=== PATIENT | male | born 1995 | race Caucasian/White ===

== ENCOUNTER 2016-10-30 22:01 | Emergency (ER) | payer SELFPAY ==
[~2016-10-30] VITALS: Ht 193 cm; Wt 153.0 kg
[~2016-10-30 22:01] MED LIST: AMOX875 PO; CEPALOZ SUCK-ON; DOXY150C OR; MEDR4PAK3 PO; VENTAER INH; [UNRECOGNIZED DRUG - CODE] EX
[2016-10-30 22:05] VITALS: BP 149/75; PULSE 91; RESP 18; TEMP 98.3; O2SAT 97
[2016-10-30 22:20] VITALS: PULSE 91; RESP 18; TEMP 98.3; O2SAT 97
--- NOTE | 2016-10-30 22:23 | PD ---
HPI Chief Complaint: GI Complaint Time Seen by Provider: 22:13 Travel History International Travel<30 days: No Contact w/Intl Traveler<30days: No Traveled to known affect area: No History of Present Illness HPI 21-year-old male here for evaluation of what he believes is a severe case of acid reflux. He states that for the last 2-3 months he has been having left upper abdominal burning and has been waking up with burning in his chest and throat, coughing up acid-like material. He states symptoms have worsened over the last 6 days, consistent of vomiting in the morning time. Pain is moderate, intermittent. He tried taking Mylanta today with only mild relief of symptoms. Currently he does not have any pain in his chest, and states that majority of his pain is in his left upper abdomen. No history of abdominal surgeries. No change in bowel movements. He does not drink alcohol or smoke cigarettes. He does admit to smoking marijuana, no other illicit drugs. He took a dose of omeprazole 4 days ago, and has not taken a dose since. He missed work today and is requesting a work note. [facility] Past Medical History Diminished Hearing: No Immunizations Current: Yes Past Surgical History Abdominal Surgery: Yes Social History Alcohol Use: No Tobacco Use: No Substance Use: No Allergies-Medications (Allergen,Severity, Reaction): Coded Allergies: No Known Allergies (Verified , 10/30/16) Reported Meds & Prescriptions Reported Meds & Active Scripts Active No Active Prescriptions or Reported Medications Review of Systems Except as stated in HPI: all other systems reviewed are Neg Physical Exam Narrative GENERAL: Well-developed, well-nourished, overweight, comfortable, no acute distress. SKIN: Focused skin assessment warm/dry. HEAD: Atraumatic. Normocephalic. EYES: Pupils equal and round. No scleral icterus. No injection or drainage. ENT: Mucous membranes pink and moist. CARDIOVASCULAR: Regular rate and rhythm. RESPIRATORY: No accessory muscle use. Clear to auscultation. Breath sounds equal bilaterally. GASTROINTESTINAL: Abdomen soft, nondistended. Mild epigastric and left upper quadrant tenderness without peritoneal signs. No right upper quadrant tenderness. Rest of abdomen is soft and nontender. Normal bowel sounds. No hernias. MUSCULOSKELETAL: No obvious deformities. No clubbing. No cyanosis. No edema. NEUROLOGICAL: Awake and alert. No obvious cranial nerve deficits. Motor grossly within normal limits. Normal speech. PSYCHIATRIC: Appropriate mood and affect; insight and judgment normal. Data Data Last Documented VS Vital Signs Date Time Temp Pulse Resp B/P Pulse Ox O2 Delivery O2 Flow Rate FiO2 10/30/16 22:20 18 10/30/16 22:20 98.3 91 97 10/30/16 22:20 Room Air 10/30/16 22:05 149/75 Orders Complete Blood Count With Diff (10/30/16 22:20) Comprehensive Metabolic Panel (10/30/16 22:20) Lipase (10/30/16 22:20) Iv Access Insert/Monitor (10/30/16 22:20) Ecg Monitoring (10/30/16 22:20) Oximetry (10/30/16 22:20) Pantoprazole Inj (Protonix Inj) (10/30/16 22:30) Sodium Chloride 0.9% Flush (Ns Flush) (10/30/16 22:30) Al-Mag Hy-Si 40-40-4 Mg/Ml Liq (Mag-Al P (10/30/16 22:30) Lidocaine 2% Viscous (Xylocaine 2% Visco (10/30/16 22:30) Labs Laboratory Tests Test 10/30/16 22:35 White Blood Count 8.0 TH/MM3 Red Blood Count 5.18 MIL/MM3 Hemoglobin 14.5 GM/DL Hematocrit 44.3 % Mean Corpuscular Volume 85.7 FL Mean Corpuscular Hemoglobin 28.0 PG Mean Corpuscular Hemoglobin 32.7 % Concent Red Cell Distribution Width 12.1 % Platelet Count 219 TH/MM3 Mean Platelet Volume 7.4 FL Neutrophils (%) (Auto) 53.4 % Lymphocytes (%) (Auto) 32.5 % Monocytes (%) (Auto) 9.7 % Eosinophils (%) (Auto) 3.0 % Basophils (%) (Auto) 1.4 % Neutrophils # (Auto) 4.3 TH/MM3 Lymphocytes # (Auto) 2.6 TH/MM3 Monocytes # (Auto) 0.8 TH/MM3 Eosinophils # (Auto) 0.2 TH/MM3 Basophils # (Auto) 0.1 TH/MM3 CBC Comment DIFF FINAL Differential Comment Sodium Level 142 MEQ/L Potassium Level 3.4 MEQ/L Chloride Level 105 MEQ/L Carbon Dioxide Level 30.8 MEQ/L Anion Gap 6 MEQ/L Blood Urea Nitrogen 10 MG/DL Creatinine 0.93 MG/DL Estimat Glomerular Filtration 102 ML/MIN Rate Random Glucose 102 MG/DL Calcium Level 8.9 MG/DL Aspartate Amino Transf 20 U/L (AST/SGOT) Alanine Aminotransferase 40 U/L (ALT/SGPT) Albumin 3.7 GM/DL Lipase 129 U/L [facility] Medical Decision Making Medical Screen Exam Complete: Yes Emergency Medical Condition: Yes Differential Diagnosis Gastritis, peptic ulcer disease, pancreatitis, hepatobiliary disease, Narrative Course Initial vital signs show heart rate 91, blood pressure 149/75, pulse ox 97% on room air, oral temp of 98.3F. CBC is unremarkable. CMP is is remarkable for potassium 3.4, otherwise unremarkable. Lipase is 129. Patient signs and symptoms are consistent with gastritis/GERD. He has only taken one dose of Protonix and took this dose 4 days ago. I have encouraged him to continue taking this medication daily. I will give him a prescription for Carafate as well. I do not believe that there is an acute surgical process to warrant imaging at this time. I believe he is stable for discharge home with outpatient follow-up with a primary care physician and dog control officer this week. He was informed on when to return to the emergency department. He verbalizes understanding and agreement with plan. Diagnosis Primary Impression: Gastritis Qualified Code: K29.50 - Chronic gastritis, presence of bleeding unspecified, unspecified gastritis type Referrals: Roderick Swan MD 3 days [employer] Primary Care Physician 3 days Additional Instructions: Take the omeprazole/pantoprazole daily. Follow-up with a primary care physician this week. Follow-up with dog control officer Dr. Swan or a dog control officer of your choice this week. Return to the emergency department for worsening symptoms or any other concerns. Scripts Sucralfate (Carafate)1 Gm Tab1 Gm PO TID #30 TAB Ref 0 On empty stomach Prov:Sharath Barber MD 10/30/16 Disposition: 01 DISCHARGE HOME Condition: Stable Sharath Barber MD Oct 30, 2016 22:23
[2016-10-30] MEDS ORDERED: ALUMINUM/MAGNESIUM/SIMETH 30 ML CUP PO ONE (22:30)
[2016-10-30] MEDS ORDERED: PANTOPRAZOLE SODIUM 40 MG VIAL IVP ONE (22:30)
[2016-10-30] MEDS ORDERED: SODIUM CHLORIDE 0.9% FLUSH 10 ML FLUSH IV FLUSH PRN (22:30)
[2016-10-30] MEDS ORDERED: LIDOCAINE VISCOUS 2% SOLN 15 ML UDC PO ONE (22:30)
[2016-10-30 22:46] LABS: AUTOMATED NEUTROPHIL # 4.3 TH/MM3 (1.8-7.7); BASOPHIL # 0.1 TH/MM3 (0-0.2); BASOPHIL % 1.4 % (0.0-2.0); EOSINOPHIL # 0.2 TH/MM3 (0-0.4); HEMATOCRIT 44.3 % (39.0-51.0); HEMO FLAGS DIFF FINAL; LYMPH % 32.5 % (9.0-44.0); LYMPHOCYTE # 2.6 TH/MM3 (1.0-4.8); MEAN CELL VOLUME 85.7 FL (80.0-100.0); MEAN CORPUSCULAR HGB CONC 32.7 % (32.0-36.0); MONO % 9.7 % (0.0-8.0); NEUT % 53.4 % (16.0-70.0); PLATELET COUNT 219 TH/MM3 (150-450); RED BLOOD COUNT 5.18 MIL/MM3 (4.50-5.90); RED CELL DISTRIBUTION WIDTH 12.1 % (11.6-17.2)
[2016-10-30 22:53] LABS: CHLORIDE 105 MEQ/L (98-107); POTASSIUM 3.4 MEQ/L (3.5-5.1); SODIUM (NA) 142 MEQ/L (136-145)
[2016-10-30 22:57] LABS: ANION GAP 6 MEQ/L (5-15); BICARBONATE 30.8 MEQ/L (21.0-32.0); BLOOD UREA NITROGEN 10 MG/DL (7-18)
[2016-10-30 23:00] LABS: ALT (GPT) 40 U/L (12-78); AST (GOT) 20 U/L (15-37); GLOMERULAR FILTRATION RATE 102 ML/MIN (>89)
[2016-10-30 23:02] LABS: TOTAL BILIRUBIN ADULT 0.4 MG/DL (0.2-1.0)
[2016-10-30 23:03] LABS: ALKALINE PHOSPHATASE 76 U/L (45-117)
[2016-10-30] MEDS ORDERED: CARA1TAB6 PO (23:04)
[2016-10-30 23:48] VITALS: BP 141/74; PULSE 88; RESP 18; O2SAT 97
== END 2016-10-30 23:58 | disposition home or self-care (01) ==
LOC: PHED 22:01
DX: K29.50 Unspecified chronic gastritis without bleeding (principal)
CPT/HCPCS: 80053; 83690; 85025; 96374; 99284; C9113

== ENCOUNTER 2016-11-24 19:50 | Emergency (ER) | payer SELFPAY ==
[~2016-11-24] VITALS: Ht 193 cm; Wt 149.0 kg
[~2016-11-24 19:50] MED LIST changes: -AMOX875 PO; +CARA1TAB6 PO; -CEPALOZ SUCK-ON; -DOXY150C OR; -MEDR4PAK3 PO; -VENTAER INH; -[UNRECOGNIZED DRUG - CODE] EX
[2016-11-24 20:05] VITALS: BP 138/76; PULSE 120; RESP 20; TEMP 98.2; O2SAT 96
[2016-11-24] MEDS ORDERED: SODIUM CHLOR 0.9% 1000 ML INJ 1,000 ML IV SCH (20:21)
[2016-11-24] MEDS ORDERED: SODIUM CHLORIDE 0.9% FLUSH 10 ML FLUSH IV FLUSH PRN (20:30)
[2016-11-24] MEDS ORDERED: methylPREDNISolone SOD SUCC 125 MG/2 ML VIAL IVP ONE (20:30)
[2016-11-24] MEDS ORDERED: FAMOTIDINE 20 MG/2 ML VIAL IV PUSH ONE (20:30)
[2016-11-24] MEDS ORDERED: diphenhydrAMINE HCL 50 MG/ML VIAL IVP ONE (20:30)
[2016-11-24] MEDS ORDERED: FAMO1TAB37 PO (21:04)
[2016-11-24] MEDS ORDERED: DIPH25TA2 PO (21:04)
[2016-11-24] MEDS ORDERED: EPIP0.3I IM (21:04)
--- NOTE | 2016-11-24 21:05 | PD ---
HPI Chief Complaint: Bite or Sting Time Seen by Provider: 20:13 Travel History International Travel<30 days: No Contact w/Intl Traveler<30days: No Traveled to known affect area: No History of Present Illness HPI The patient's 21 years old and was bit by bees about 4 hours ago. He reports at least 20 bee stings on his back and legs and elsewhere, though sparing the face. Over the past 2 hours he has developed a rash generally the most prominently in the antecubital fossae is an anterior arms bilaterally. He applied some cortisone cream which helped the itchiness. He's had no nausea or vomiting or abdominal pain. He had no shortness of breath or wheezing. PFSH Past Medical History Diminished Hearing: No Immunizations Current: Yes Tetanus Vaccination: < 5 Years Past Surgical History Abdominal Surgery: Yes Social History Alcohol Use: No Tobacco Use: No Substance Use: No Allergies-Medications (Allergen,Severity, Reaction): Coded Allergies: No Known Allergies (Verified , 10/30/16) Reported Meds & Prescriptions Reported Meds & Active Scripts Active Pepcid (Famotidine) 20 Mg Tab 20 Mg PO BID PRN Diphenhydramine (Diphenhydramine HCl) 25 Mg Tab 25 Mg PO Q6H PRN Epipen 2-Alejo Inj (Epinephrine) 0.3 Mg/0.3 Ml Pfpen 0.3 Mg IM ONCE PRN Carafate (Sucralfate) 1 Gm Tab 1 Gm PO TID On empty stomach Review of Systems Except as stated in HPI: all other systems reviewed are Neg Physical Exam Narrative GENERAL: 21 yo M, WNWD, NAD SKIN: Warm and dry. Urticarial rash involving bilateral antecubital fossae and arms generally. Total trunk involvement also present. HEAD: Atraumatic. Normocephalic. EYES: Pupils equal and round. No scleral icterus. No injection or drainage. ENT: No nasal bleeding or discharge. Mucous membranes pink and moist. NECK: Trachea midline. No JVD. CARDIOVASCULAR: Regular rate and rhythm. RESPIRATORY: No accessory muscle use. Clear to auscultation. Breath sounds equal bilaterally. GASTROINTESTINAL: Abdomen soft, non-tender, nondistended. Hepatic and splenic margins not palpable. MUSCULOSKELETAL: Extremities without clubbing, cyanosis, or edema. No obvious deformities. NEUROLOGICAL: Awake and alert. No obvious cranial nerve deficits. Motor grossly within normal limits. Five out of 5 muscle strength in the arms and legs. Normal speech. PSYCHIATRIC: Appropriate mood and affect; insight and judgment normal. Data Data Last Documented VS Vital Signs Date Time Temp Pulse Resp B/P Pulse Ox O2 Delivery O2 Flow Rate FiO2 11/24/16 21:26 87 16 119/59 98 Room Air 11/24/16 20:05 98.2 VS reviewed Orders Ecg Monitoring (11/24/16 20:21) Iv Access Insert/Monitor (11/24/16 20:21) Oximetry (11/24/16 20:21) Diphenhydramine Inj (Benadryl Inj) (11/24/16 20:30) Methylprednisolone So Succ Inj (Solumedr (11/24/16 20:30) Famotidine Inj (Pepcid Inj) (11/24/16 20:30) Sodium Chlor 0.9% 1000 Ml Inj (Ns 1000 M (11/24/16 20:21) Sodium Chloride 0.9% Flush (Ns Flush) (11/24/16 20:30) MDM Medical Decision Making Medical Screen Exam Complete: Yes Emergency Medical Condition: Yes Medical Record Reviewed: Yes Differential Diagnosis anaphylaxis, urticaria, rash Narrative Course Benadryl Pepcid; Medrol given. Patient reassessed at about 9:05 PM and had persistent urticaria. Ongoing observation planned. Reassessment at 1020pm: pt resting comfortably on bed, near complete resolution of rash noted; pt ready for discharge. Return precautions discussed. Diagnosis Primary Impression: Allergic reaction to bee sting Referrals: Primary Care Physician 2 days Additional Instructions: You have a choice when it comes to health care, and we are glad that you chose [facility]. Hopefully, we have met your expectations on today's visit. You are welcome to return to [facility] at any time, as we are committed to meeting the health care needs of our community. Med/Other Pt SpecificInfo: Prescription(s) given Scripts Famotidine (Pepcid)20 Mg Tab20 Mg PO BID PRN (ALLERGIC REACTION) #20 TAB Ref 0 Prov:Butch Sosa MD 11/24/16 Diphenhydramine 25 Mg Tab25 Mg PO Q6H PRN (ALLERGIES) #20 TAB Ref 0 Prov:Butch Sosa MD 11/24/16 Epinephrine Inj (Epipen 2-Alejo Inj)0.3 Mg/0.3 Ml Pfpen0.3 Mg IM ONCE PRN ( ALLERGIC REACTION) #1 PACK Ref 0 Prov:Butch Sosa MD 11/24/16 Disposition: 01 DISCHARGE HOME Condition: Stable Butch Sosa MD Nov 24, 2016 21:04
[2016-11-24 21:26] VITALS: BP 119/59; PULSE 87; RESP 16; O2SAT 98
[2016-11-24 22:35] VITALS: BP 119/74
== END 2016-11-24 22:37 | disposition home or self-care (01) ==
LOC: PHED 19:50
DX: T63.441A Toxic effect of venom of bees, accidental (unintentional), initial encounter (principal); R21 Rash and other nonspecific skin eruption; W57.XXXA Bitten or stung by nonvenomous insect and other nonvenomous arthropods, initial encounter; Y93.9 Activity, unspecified; Y92.9 Unspecified place or not applicable
CPT/HCPCS: 96361; 96374; 96375; 99284; J1200; J2930; J7030